=== PATIENT | female | born 1980 | race Caucasian/White ===

== ENCOUNTER 2020-10-07 04:18 | Day surgery (SDC) | payer OTHER ==
[2020-10-06 11:50] VITALS: BMI 24.0
[2020-10-07 09:35] LABS: BASO % 0.4 % (0-2.0); EOS % 2.3 % (0-4.5); HEMATOCRIT 35.8 % (32.4-45.2); HEMOGLOBIN 12.6 GM/dL (10.7-15.3); LYMPH % 20.5 % (8-40); MCH 35.4 pg (25.7-33.7); MCHC 35.2 g/dl (32.0-36.0); MEAN CELL VOLUME 100.7 fl (80-96); MEAN PLT VOLUME 7.2 fl (7.5-11.1); MONO % 10.1 % (3.8-10.2); NEUT % 66.7 % (42.8-82.8); PLATELET COUNT 235 10^3/uL (134-434); RBC 3.55 M/mm3 (3.60-5.2); RDW 12.2 % (11.6-15.6); WHITE BLOOD COUNT 7.1 K/mm3 (4.0-10.0)
[2020-10-07] MEDS ORDERED: WATER IVPB ONE (10:11)
[2020-10-07] MEDS ORDERED: DEXTROSE 5% IVPB ONE (10:11)
[2020-10-07] MEDS ORDERED: DOXYCYCLINE IVPB ONE (10:11)
[2020-10-07] MEDS ORDERED: ACETAMINOPHEN 325 MG TABLET (FP) PO PRN (10:12)
[2020-10-07] MEDS ORDERED: IBUPROFEN 400 MG TABLET (FP) PO PRN (10:12)
[2020-10-07] MEDS ORDERED: oxyCODONE HCL 5 MG TABLET PO PRN (10:12)
[2020-10-07] MEDS ORDERED: ONDANSETRON 4 MG/2 ML VIAL IVPUSH PRN (10:13)
[2020-10-07] MEDS ORDERED: DOXYCYCLINE INJECTION 200 MG in DEXTROSE 5%-WATER - 250 ML IVPB ONE (10:15)
[2020-10-07] MEDS ORDERED: PROPOFOL 20 ML ONE (10:48)
[2020-10-07] MEDS ORDERED: DOXYCYCLINE HYCLATE 100 MG VIAL IVPB ONE (10:54)
[2020-10-07] MEDS ORDERED: DEXAMETHASONE SOD PHOSPHATE 4 MG/1 ML VIAL ONE (11:01)
[2020-10-07] MEDS ORDERED: ONDANSETRON 4 MG/2 ML VIAL ONE (11:01)
[2020-10-07 17:02] VITALS: BP 100/60; PULSE 67; TEMP 98
== END 2020-10-07 14:46 | disposition home or self-care (01) ==
LOC: JASU-SURG 04:18
PROVIDERS: ATTEND Obstetrics & Gynecology
PROC: 10D17ZZ Extraction of Products of Conception, Retained, Via Natural or Artificial Opening (ICD-10-PCS; principal; 2020-10-07 10:00)
DX: O02.1 Missed abortion (principal); Z3A.08 8 weeks gestation of pregnancy
CPT/HCPCS: 36415; 85025; 86850; 86900; 86901; 94760